=== PATIENT | male | born 1955 | race Caucasian/White ===

== ENCOUNTER 2019-02-07 15:26 | Emergency (ER) | payer OTHER ==
[2019-02-07 18:05] LABS: ABSOLUTE LYMPHOCYTES (AUTO) 2.2 10^3/uL (0.5-4.7); ABSOLUTE MONOCYTES (AUTO) 0.6 10^3/uL (0.1-1.4); ABSOLUTE NEUT (AUTO) 2.8 10^3/uL (1.7-8.2); BASOPHILS % (AUTO) 0.5 % (0-2); EOSINOPHILS % (AUTO) 0.2 % (0-6); HEMATOCRIT 46.3 % (37.9-51.0); HEMOGLOBIN 15.6 g/dL (13.5-17.0); LYMPHOCYTES % (AUTO) 39.3 % (13-45); MEAN CORPUSCULAR HEMOGLOBIN 29.6 pg (27.0-33.4); MEAN CORPUSCULAR HGB CONC 33.6 g/dL (32.0-36.0); MEAN CORPUSCULAR VOLUME 88 fl (80-97); MONOCYTES % (AUTO) 11.3 % (3-13); PLATELET COUNT 140 10^3/uL (150-450); RED BLOOD COUNT 5.26 10^6/uL (4.35-5.55); RED CELL DISTRIBUTION WIDTH 13.4 % (11.5-14.0); SEGMENTED NEUTROPHILS % (AUTO) 48.7 % (42-78); TOTAL CELLS COUNTED % (AUTO) 100 %; WHITE BLOOD COUNT 5.7 10^3/uL (4.0-10.5)
--- NOTE | 2019-02-07 18:10 | ER Document Report ---
ED Medical Screen (RME) - General Chief Complaint: Sore Throat Stated Complaint: SORE THROAT Time Seen by Provider: 02/07/19 17:15 Mode of Arrival: Ambulatory Information source: Patient Notes: 63-year-old male traveling from out of town presenting with cough, congestion, vomiting x1, sore throat and all over body aches. Parents reports he is spent the last 2 days in his bed. Lung sounds clear and equal bilaterally. I have greeted and performed a rapid initial assessment of this patient. A comprehensive ED assessment and evaluation of the patient, analysis of test results and completion of the medical decision making process will be conducted by additional ED providers. I have specifically instructed the patient or family members with the patient to immediately return to any nursing staff should anything change in the patient's condition or with their chief complaint. - Related Data Allergies/Adverse Reactions: No Known Allergies Allergy (Unverified 02/07/19 17:17) Past Medical History Musculoskeltal Medical History: Reports Hx Arthritis Past Surgical History: Reports: Hx Orthopedic Surgery Physical Exam - Vital signs Vitals: Temp Pulse Resp BP Pulse Ox 97.8 F 76 17 131/74 H 98 02/07/19 15:33 02/07/19 15:33 02/07/19 15:33 02/07/19 15:33 02/07/19 15:33 Course - Vital Signs Vital signs: Temp Pulse Resp BP Pulse Ox 97.8 F 76 17 131/74 H 98 02/07/19 15:33 02/07/19 15:33 02/07/19 15:33 02/07/19 15:33 02/07/19 15:33
[2019-02-07 18:19] LABS: A TYPE INFLUENZA AG NEGATIVE (NEGATIVE)
[2019-02-07 18:20] LABS: B INFLUENZA AG NEGATIVE (NEGATIVE)
[2019-02-07 18:23] LABS: ALKALINE PHOSPHATASE 75 U/L (38-126); ANION GAP 15 (5-19); ASPARTATE AMINO TRANSFERASE 35 U/L (17-59); BILIRUBIN,DIRECT 0.3 mg/dL (0.0-0.4); BILIRUBIN,TOTAL 0.5 mg/dL (0.2-1.3); BLOOD UREA NITROGEN 20 mg/dL (7-20); CALCIUM 9.6 mg/dL (8.4-10.2); CARBON DIOXIDE 27 mmol/L (22-30); CHLORIDE 95 mmol/L (98-107); GLUCOSE 104 mg/dL (75-110); POTASSIUM 3.8 mmol/L (3.6-5.0); TOTAL PROTEIN 8.6 g/dL (6.3-8.2)
--- NOTE | 2019-02-07 20:35 | ER Document Report ---
HPI - HPI Time Seen by Provider: 02/07/19 17:15 Pain Level: 3 Notes: 63-year-old male traveling from out of town presenting with cough, congestion, vomiting x1, sore throat and all over body aches. Parents reports he is spent the last 2 days in his bed. - EENT EENT: REPORTS: Sore Throat Past Medical History - General Information source: Patient - Social History Smoking Status: Never Smoker Frequency of alcohol use: None Drug Abuse: None Family History: Reviewed & Not Pertinent Patient has suicidal ideation: No Patient has homicidal ideation: No - Past Medical History Cardiac Medical History: Reports: Hx Hypertension Musculoskeletal Medical History: Reports Hx Arthritis Past Surgical History: Reports: Hx Orthopedic Surgery Vertical Provider Document - CONSTITUTIONAL Notes: PHYSICAL EXAMINATION: GENERAL: Well-appearing, well-nourished and in no acute distress. HEAD: Atraumatic, normocephalic. EYES: Pupils equal round and reactive to light, extraocular movements intact, sclera anicteric, conjunctiva are normal. ENT: Nares patent, oropharynx clear without exudates. Moist mucous membranes. NECK: Normal range of motion, supple without lymphadenopathy LUNGS: Breath sounds clear to auscultation bilaterally and equal. No wheezes rales or rhonchi. HEART: Regular rate and rhythm without murmurs ABDOMEN: Soft, nontender, nondistended abdomen. No guarding, no rebound. No masses appreciated. Musculoskeletal: Normal range of motion, no pitting or edema. No cyanosis. NEUROLOGICAL: Cranial nerves grossly intact. Normal speech, normal gait. Normal sensory, motor exams PSYCH: Normal mood, normal affect. SKIN: Warm, Dry, normal turgor, no rashes or lesions noted. Course - Re-evaluation Re-evalutation: Microbiology 02/07/19 17:28 Throat Culture - Final Throat NORMAL GT Laboratory 02/07/19 02/07/19 02/07/19 17:28 17:28 17:28 WBC 5.7 RBC 5.26 Hgb 15.6 Hct 46.3 MCV 88 MCH 29.6 MCHC 33.6 RDW 13.4 Plt Count 140 L Lymph % (Auto) 39.3 [place] % (Auto) 11.3 Eos % (Auto) 0.2 Baso % (Auto) 0.5 Absolute Neuts (auto) 2.8 Absolute Lymphs (auto) 2.2 Absolute Monos (auto) 0.6 Absolute Eos (auto) 0.0 Absolute Basos (auto) 0.0 Seg Neutrophils % 48.7 Sodium 137.0 Potassium 3.8 Chloride 95 L Carbon Dioxide 27 Anion Gap 15 BUN 20 Creatinine 1.14 Est GFR ( Amer) > 60 Est GFR (MDRD) Non-Af > 60 Glucose 104 Calcium 9.6 Total Bilirubin 0.5 Direct Bilirubin 0.3 Neonat Total Bilirubin Not Reportable Neonat Direct Bilirubin Not Reportable Neonat Indirect Bili Not Reportable AST 35 ALT 26 Alkaline Phosphatase 75 Total Protein 8.6 H Albumin 5.0 Influenza A (Rapid) Influenza B (Rapid) Group A Strep Rapid NEGATIVE 02/07/19 17:28 WBC RBC Hgb Hct MCV MCH MCHC RDW Plt Count Lymph % (Auto) [place] % (Auto) Eos % (Auto) Baso % (Auto) Absolute Neuts (auto) Absolute Lymphs (auto) Absolute Monos (auto) Absolute Eos (auto) Absolute Basos (auto) Seg Neutrophils % Sodium Potassium Chloride Carbon Dioxide Anion Gap BUN Creatinine Est GFR ( Amer) Est GFR (MDRD) Non-Af Glucose Calcium Total Bilirubin Direct Bilirubin Neonat Total Bilirubin Neonat Direct Bilirubin Neonat Indirect Bili AST ALT Alkaline Phosphatase Total Protein Albumin Influenza A (Rapid) NEGATIVE Influenza B (Rapid) NEGATIVE Group A Strep Rapid Patient appears well, nontoxic, flu a and B-. Labs otherwise unremarkable. Patient will be discharged home with viral illness. Strict ED return precautions discussed, patient verbalized understanding and agreement with same. The patient's emergency department workup and current diagnosis were explained to the patient and or family. Follow-up instructions were provided. Medications if prescribed were discussed. Instructions for when to return to the emergency department including specific worrisome symptoms were discussed with the patient and/or family. - Vital Signs Vital signs: Temp Pulse Resp BP Pulse Ox 97.8 F 76 17 131/74 H 98 02/07/19 15:33 02/07/19 15:33 02/07/19 15:33 02/07/19 15:33 02/07/19 15:33 - Laboratory Result Diagrams: 02/07/19 17:28 02/07/19 17:28 Laboratory results interpreted by me: 02/07/19 02/07/19 17:28 17:28 Plt Count 140 L Chloride 95 L Total Protein 8.6 H Discharge - Discharge Clinical Impression: Viral illness Condition: Stable Disposition: HOME, SELF-CARE Instructions: Viral Syndrome (OM) Additional Instructions: Your work-up today was unremarkable. You are likely suffering from a viral syndrome. Please read over the handout that I have enclosed. I did write you a prescription for some Zofran and this will help with any nausea or vomiting. I also wrote you a prescription for some cough medication. Please rest as much as possible over the next several days. Take Tylenol or ibuprofen for any body aches, pain or fevers. Follow-up with your primary care provider at your earliest convenience. Return to the emergency department any new or worsening symptoms. Prescriptions: Benzonatate [Tessalon Perles 100 mg Capsule] 1 - 2 tab PO Q8HP PRN #30 capsule PRN Reason: Ondansetron [Zofran Odt 4 mg Tablet] 1 - 2 tab PO Q4H PRN #15 tab.rapdis PRN Reason: For Nausea/Vomiting
[2019-02-07 21:05] VITALS: BP 130/94
== END 2019-02-07 21:00 | disposition home or self-care (01) ==
LOC: ER 15:26
DX: R05 Cough (principal); B34.9 Viral infection, unspecified; R11.10 Vomiting, unspecified; I10 Essential (primary) hypertension
CPT/HCPCS: 36415; 80053; 85025; 87070; 87804; 87880; 99283